=== PATIENT | male | born 1950 | race Caucasian/White ===

== ENCOUNTER 2016-08-15 18:34 | Emergency (ER) | payer OTHER ==
[~2016-08-15] VITALS: Ht 185.4 cm; Wt 102.1 kg
[2016-08-15] MEDS ORDERED: VITAMIN D250000 UNIT PO (20:11)
[2016-08-15] MEDS ORDERED: METFORMIN HCL1000 M3 PO (20:12)
[2016-08-15] MEDS ORDERED: NEXIUM40 M1 PO (20:13)
[2016-08-15] MEDS ORDERED: TRULICITY0.75 MG/01 INJ (20:14)
--- NOTE | 2016-08-15 20:14 | ED GENERAL ADULT ---
History of Present Illness General Chief Complaint: ETOH/Drug Related Complaint Stated Complaint: ETOH, REQUESTING DETOX Source: patient, family, old records Exam Limitations: no limitations Vital Signs & Intake/Output Vital Signs & Intake/Output Vital Signs Date Time Temp Pulse Resp B/P Pulse O2 O2 Flow FiO2 Ox Delivery Rate 08/16 0847 97.6 94 18 193/98 08/16 0847 97.6 94 18 193/98 08/16 0826 97.6 94 193/98 08/16 0743 98.8 88 18 182/88 08/16 0740 98.8 88 18 182/88 98 Room Air 08/16 0629 96.1 100 16 186/110 97 Room Air 08/16 0628 96.1 100 16 186/110 08/16 0258 181/110 08/16 0258 97.5 88 16 181/113 08/16 0143 95.4 96 16 175/110 08/16 0129 95.4 96 16 175/110 95 Room Air 08/15 2244 96.4 100 20 170/88 08/15 2240 96.4 100 20 170/88 96 Room Air 08/15 2042 97.8 106 18 136/90 97 Room Air 08/15 2041 97.8 106 18 136/90 08/15 1904 98.5 103 18 134/90 96 Room Air ED Intake and Output 08/16 0000 08/15 1200 Intake Total Output Total 1 Balance -1 Output, Urine 1 Patient 225 lb Weight Allergies Coded Allergies: No Known Allergies (08/15/16) Reconcile Medications Aspirin (Aspirin*) 81 MG TAB.CHEW 1 TAB PO DAILY HEART HEALTH (Reported) Dulaglutide (Trulicity) 0.75 MG/0.5 ML PEN.INJCTR 1 INJ ONCE A WEEK DM ( Reported) Ergocalciferol (Vitamin D2) (Vitamin D2) 50,000 UNIT CAPSULE 1 CAP PO QW VITAMIN (Reported) Esomeprazole (Nexium) 40 MG CAPSULE.DR 1 CAP PO DAILY ACID REFLUX (Reported) Losartan Potassium 50 MG TABLET 1 TAB PO DAILY HTN (Reported) Metformin HCl (Metformin HCl ER) 1,000 MG [id number] 1 TAB PO DAILY DM ( Reported) Nebivolol HCl (Bystolic) 10 MG TABLET 1 TAB PO DAILY HTN (Reported) Rosuvastatin Calcium (Crestor) 40 MG TABLET 1 TAB PO DAILY CHOLESTROL ( Reported) Tamsulosin HCl 0.4 MG CAP.ER.24H 1 CAP PO DAILY PROSTASTE (Reported) Vitamin E Acetate (Vitamin E) 200 UNIT CAPSULE 1 CAP PO DAILY VITAMIN ( Reported) Triage Note: RECEIVED 66 YO MALE REQUESTING DETOX FROM ALCOHOL. PT USUALLY DRINKS ABOUT A PINT A DAY. PT DRANK TODAY. PT DENIES WITHDRAWWL SEIZURES. PT'S BROTHER REPORTS SHAKES, SWEATING. Triage Nurses Notes Reviewed? yes HPI: Patient presents requesting alcohol detox. Patient states that his last detox was approximately 10 years ago and he means over for approximately 2 years. Patient has been drinking pretty steadily since then. Patient states he is able to go few days without drinking but then he resumes again. Patient states when he saw striking it to little tremulous but denies any diaphoresis, nausea hallucinations or seizures. Patient does have blackouts. Patient states that he knows that this is a time that he needs to get help. Patient states that the drinking is now interfering with his work as well as his life. (LIANE MIJARES,TADEO Ceballos) Past History Travel History Traveled to [place] past 21 day No Medical History Any Pertinent Medical History? see below for history Neurological: NONE EENT: NONE Cardiovascular: hypertension, hyperlipidemia Gastrointestinal: GERD Hepatic: NONE Renal: NONE Psychiatric: NONE Endocrine: diabetes Blood Disorders: NONE Cancer(s): NONE Surgical History Surgical History: non-contributory Psychosocial History What is your primary language Uruguayan Tobacco Use: Current Daily Use Daily Tobacco Use Amount/Type: => 5 Cigarettes daily ETOH Use: alcoholic Illicit Drug Use: denies illicit drug use Family History Hx Contributory? No (LIANE MIJARES,TADEO Ceballos) Review of Systems Review of Systems Constitutional: Reports: no symptoms. EENTM: Reports: no symptoms. Respiratory: Reports: no symptoms. Cardiovascular: Reports: no symptoms. GI: Reports: no symptoms. Genitourinary: Reports: no symptoms. Musculoskeletal: Reports: no symptoms. Skin: Reports: no symptoms. Neurological/Psychological: Reports: no symptoms. Hematologic/Endocrine: Reports: no symptoms. Immunologic/Allergic: Reports: no symptoms. All Other Systems: Reviewed and Negative (LIANE MIJARES,TADEO Ceballos) Physical Exam Physical Exam General Appearance: well developed/nourished, alert, awake, mild distress, intoxicated Head: atraumatic, normal appearance Eyes: Bilateral: PERRL, EOMI, other (SLUGGISH). Ears, Nose, Throat: normal pharynx, normal ENT inspection, hearing grossly normal Neck: normal inspection, supple, full range of motion Respiratory: normal breath sounds, chest non-tender, no respiratory distress, lungs clear Cardiovascular: regular rate/rhythm, normal peripheral pulses Gastrointestinal: normal bowel sounds, soft, non-tender Back: normal inspection, normal range of motion Extremities: normal inspection, normal capillary refill, normal range of motion, no edema Neurologic/Psych: no motor/sensory deficits, awake, alert, oriented x 3, normal gait, normal mood/affect Skin: intact, normal color, warm/dry Lymphatic: no anterior cervical gabriel Core Measures ACS in differential dx? No CVA/TIA Diagnosis: No Severe Sepsis Present: No Septic Shock Present: No (LIANE MIJARES,TADEO Ceballos) Progress Differential Diagnoses I considered the following diagnoses in my evaluation of the patient: [ALCOHOL DEPENDENCY WITH ABUSE] Plan of Care: Orders Procedure Date/time Status Regular Diet 08/16 B Active CASE MANAGEMENT CONSULT 08/16 0302 Active CIWA 08/15 2012 Active URINE DRUGS OF ABUSE 08/15 2012 Complete ETHANOL 08/15 2012 Complete COMPREHENSIVE METABOLIC PANEL 08/15 2012 Complete CBC WITHOUT DIFFERENTIAL 08/15 2012 Complete EKG 08/15 2012 Active Laboratory Tests 08/15/16 2105: Urine Opiates Screen < 100.00, Methadone Screen < 40, Barbiturate Screen < 60, Ur Phencyclidine Scrn < 6.00, Amphetamines Screen < 100, U Benzodiazepines Scrn < 85, Urine Cocaine Screen < 50, Urine Cannabis Screen < 5.00 08/15/162: Anion Gap 17 H, Estimated GFR > 60, BUN/Creatinine Ratio 13.8, Glucose 169 H, Calcium 10.0, Total Bilirubin 0.5, AST 117 H, ALT 144 H, Alkaline Phosphatase 68, Total Protein 7.9, Albumin 4.6, Globulin 3.3, Albumin/Globulin Ratio 1.4, CBC w Diff NO MAN DIFF REQ, RBC 4.43 L, MCV 93.2, MCH 33.3 H, RDW 13.5, MPV 7.2 L, Gran % 55.1, Lymphocytes % 35.2, Monocytes % 5.1, Eosinophils % 2.7, Basophils % 1.9, Absolute Granulocytes 4.0, Absolute Lymphocytes 2.6, Absolute Monocytes 0.4, Absolute Eosinophils 0.2, Absolute Basophils 0.1, PUBS MCHC 35.7, Serum Alcohol 184.0 Initial ED EKG: NSR, no ST T wave changes Hand-Off Endorsed To: SILVANA NUNEZ MD Endorsed Time: 0100 Pending: other (RE-EVAL) (TADEO ROB MD) Hand-Off Endorsed To: SAIGE DAVENPORT DO Endorsed Time: 0700 Pending: other (CASE MANAGEMENT) (SILVANA NUNEZ MD) Departure Departure Disposition: HOME OR SELF CARE Condition: Stable Clinical Impression Primary Impression: Alcohol abuse Referrals: UNKNOWN (PCP/Family) Additional Instructions: FOLLOW UP WITH [facility] RETURN FOR ANY CONCERNS Departure Forms: Customer Survey General Discharge Information (LIANE MIJARES,TADEO Ceballos) Departure Comments 08/16/16 9 am The patient was signed out to me by Dr. Nunez. He currently has no complaints in the emergency department. His blood pressure was significantly elevated. He was given an additional dose of 10 mg of Bystolic and 0.1 of clonidine by mouth. He was instructed to follow-up at [facility] and he has the information to do this. He also consented to speak with the staff at [facility]. His contact information was given to [facility] to reach out to him about the inpatient program. The patient was instructed to follow-up with his doctor in the next 72 hours and have his blood pressure rechecked. 08/16/16 - 0826 [facility]REA MST VITAL SIGNS B/P: 193/98 BP Source+ Manually BP Position+ Mean Arterial Pressure Pulse: 94 Temp: 97.6 Temp Source+ Tympanic Resp: SPO2: O2 By+ Amt O2+ Note (SAIGE DAVENPORT DO) Critical Care Note Critical Care Note Critical Care Time: non-applicable (TADEO ROB MD)
[2016-08-15] MEDS ORDERED: LOSARTAN POTASS50 M1 PO (20:15)
[2016-08-15] MEDS ORDERED: CRESTOR40 M2 PO (20:15)
[2016-08-15] MEDS ORDERED: TAMSULOSIN HCL0.4 M1 PO (20:15)
[2016-08-15] MEDS ORDERED: ASPIRIN81 M4 PO (20:16)
[2016-08-15] MEDS ORDERED: BYSTOLIC10 M1 PO (20:16)
[2016-08-15] MEDS ORDERED: VITAMIN E200 UNIT PO (20:18)
[2016-08-15 21:03] LABS: ABSOLUTE BASOPHIL COUNT 0.1 /CUMM (0.0-0.2); ABSOLUTE EOSINOPHIL COUNT 0.2 /CUMM (0.0-0.7); ABSOLUTE LYMPH COUNT 2.6 /CUMM (1.2-3.4); ABSOLUTE MONOCYTE COUNT 0.4 /CUMM (0.10-0.60); BASOPHIL % 1.9 % (0.0-2.0); EOSINOPHIL % 2.7 % (0-5); GRANULOCYTE % 55.1 % (42.2-75.2); HEMATOCRIT 41.3 % (42-52); MEAN CORPUSCULAR HGB 33.3 PG (27.0-31.0); MEAN CORPUSCULAR HGB CONC 35.7 G/DL (33.0-37.0); MEAN CORPUSCULAR VOLUME 93.2 FL (80.0-94.0); MEAN PLATELET VOLUME 7.2 FL (7.4-10.4); PLATELET COUNT 192 /CUMM (130-400); RBC DISTRIBUTION WIDTH 13.5 % (11.5-14.5); RED BLOOD CELL CT 4.43 /CUMM (4.70-6.10); WHITE BLOOD CELL COUNT 7.3 /CUMM (4.8-10.8)
[2016-08-16 08:47] VITALS: BP 193/98
== END 2016-08-16 09:10 ==
LOC: ERH 18:34
PROVIDERS: Emergency Medicine
DX: F10.10 Alcohol abuse, uncomplicated (principal); Z72.0 Tobacco use
CPT/HCPCS: 80307; 93005; 93010; G0480